=== PATIENT | male | born 1985 | race American Indian/Alaskan Native ===

== ENCOUNTER 2016-11-16 13:24 | Emergency (ER) | payer SELFPAY ==
[2016-11-16] MEDS ORDERED: NACL 0.9% 1000 ML 1,000 ML IV ONE (16:31)
[2016-11-16] MEDS ORDERED: BENADRYL IV ONE (16:32)
[2016-11-16] MEDS ORDERED: PEPCID IV ONE (16:32)
--- NOTE | 2016-11-16 16:34 | Emergency Department Report ---
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 Exposed to some onions. [place] entire body develop rash and back of throat felt full. Denies shortness of breath chest pain fevers chills. He did not have an EpiPen currently. This started approximately 1 hour prior to arrival <SVEN TALAVERA - Last Filed: 11/16/16 16:47> - General Chief Complaint: Allergic Reaction Time Seen by Provider: 11/16/16 16:31 ED Past Medical Hx - Social History Smoking Status: Never Smoker <LYN LANGSTON - Last Filed: 11/16/16 16:32> - Past Medical History Previous Medical History?: Yes Additional medical history: History of allergic reaction - Surgical History Past Surgical History?: No - Family History Family history: no significant - Social History Smoking Status: Never Smoker <SVEN TALAVERA - Last Filed: 11/16/16 16:47> - Medications Home Medications: Home Medications Medication Instructions Recorded Confirmed Last Taken Type Amoxicillin [Trimox CAP] 500 mg PO Q8H #40 capsule 01/30/13 Unknown Rx Hydrocodone Bit/Acetaminophen 1 each PO Q6HR #20 tablet 01/30/13 Unknown Rx [Lortab 5-500 Tablet] Loratadine [Claritin] 10 mg PO DAILY #30 tablet 01/30/13 Unknown Rx Prednisone 40 mg PO QDAY #10 tablet 01/30/13 Unknown Rx Famotidine [Pepcid] 20 mg PO BID #8 tablet 11/16/16 Unknown Rx predniSONE [Deltasone] 40 mg PO QDAY #8 tab 11/16/16 Unknown Rx ED Review of Systems ROS: Stated complaint: ALLERGIC REACTION Other details as noted in HPI Comment: All other systems reviewed and negative <LYN LANGSTON - Last Filed: 11/16/16 16:32> ROS: Stated complaint: ALLERGIC REACTION Other details as noted in HPI Constitutional: no symptoms reported Eyes: as per HPI ENT: throat pain Respiratory: denies: cough, orthopnea, shortness of breath, SOB with exertion, SOB at rest, stridor, wheezing Cardiovascular: denies: chest pain, palpitations Gastrointestinal: denies: abdominal pain, nausea, vomiting Musculoskeletal: denies: back pain Skin: denies: rash, lesions Neurological: denies: headache, weakness <SVEN TALAVERA - Last Filed: 11/16/16 16:47> Physical Exam - Physical Exam Vital Signs: Vital Signs 11/16/16 14:27 Temperature 98.4 F Pulse Rate 66 Respiratory 16 Rate Blood Pressure 115/70 O2 Sat by Pulse 99 Oximetry <LYN LANGSTON - Last Filed: 11/16/16 16:32> - Physical Exam Vital Signs: Vital Signs 11/16/16 14:27 Temperature 98.4 F Pulse Rate 66 Respiratory 16 Rate Blood Pressure 115/70 O2 Sat by Pulse 99 Oximetry General: Gen.: No apparent distress HEENT: Mild swelling of uvula. No tongue swelling. Oropharynx is otherwise clear. Pulmonary: Lungs clear no wheezes. Cardiac: Regular rate and rhythm no rubs murmurs or gallops. Abdominal: Nontender abdominal exam no distention. Skin: No obvious rash. <SVEN TALAVERA - Last Filed: 11/16/16 16:47> ED Course Vital Signs 11/16/16 14:27 Temperature 98.4 F Pulse Rate 66 Respiratory 16 Rate Blood Pressure 115/70 O2 Sat by Pulse 99 Oximetry <LYN LANGSTON - Last Filed: 11/16/16 16:32> Vital Signs 11/16/16 14:27 Temperature 98.4 F Pulse Rate 66 Respiratory 16 Rate Blood Pressure 115/70 O2 Sat by Pulse 99 Oximetry <SVEN TALAVERA - Last Filed: 11/16/16 16:47> ED Medical Decision Making - EKG Data EKG shows normal: sinus rhythm - EKG Data When compared to previous EKG there are: no significant change - Medical Decision Making patient doing well. ivf given here and steorids too. <LYN LANGSTON - Last Filed: 11/16/16 16:32> - Medical Decision Making Patient improved after IV steroids. Plan to discharge. <SVEN TALAVERA - Last Filed: 11/16/16 16:47> Critical care attestation.: If time is entered above; I have spent that time in minutes in the direct care of this critically ill patient, excluding procedure time. <LYN LANGSTON - Last Filed: 11/16/16 16:32> Critical care attestation.: If time is entered above; I have spent that time in minutes in the direct care of this critically ill patient, excluding procedure time. <SVEN TALAVERA - Last Filed: 11/16/16 16:47> ED Disposition <LYN LANGSTON - Last Filed: 11/16/16 16:32> Is pt being admited?: No Does the pt Need Aspirin: No <SVEN TALAVERA - Last Filed: 11/16/16 16:47> Clinical Impression: Allergic reaction Disposition: - TO HOME OR SELFCARE Condition: Stable Instructions: Food Allergy (ED) Prescriptions: Famotidine [Pepcid] 20 mg PO BID #8 tablet predniSONE [Deltasone] 40 mg PO QDAY #8 tab
[2016-11-16 17:03] VITALS: BP 121/75
== END 2016-11-16 17:57 | disposition home or self-care (01) ==
LOC: ED 13:24
DX: T78.40XA Allergy, unspecified, initial encounter (principal)
CPT/HCPCS: 96361; 96374; 96375; 99284; J1200; J2930; J7030